=== PATIENT | female | born 1955 | race Caucasian/White ===

== ENCOUNTER → 2017-01-17 | Outpatient (CLI) | payer BC ==
--- NOTE | 2017-01-17 14:38 | RESP ---
DATE OF SERVICE: 01/17/2017 ATTENDING PHYSICIAN: Dr. Nayan Andrade. The patient's FVC was 3.7 which is 121% of predicted, FEV1 2.8 which is 118% of predicted. FEV1/FVC ratio was normal. No bronchodilators were given. Lung volume showed a total lung capacity of 169% of predicted, residual volume 264% of predicted. Diffusion capacity 122% of predicted. IMPRESSION: 1. No significant obstructive airway disease. 2. No bronchodilators given. 3. Lung volumes consistent with hyperinflation. 4. Increased diffusion capacity. ADÁN BADILLO MD DR: SAEED/hollie JOB#: [id number] / [id number] NAYAN Chaparro MD
== END | disposition home or self-care (01) ==
LOC: PF 11:51
PROVIDERS: ATTEND Internal Medicine Pulmonary Disease
DX: R06.02 Shortness of breath (principal)
CPT/HCPCS: 94010; 94729

== ENCOUNTER → 2017-01-18 | Outpatient (CLI) | payer BC ==
--- NOTE | 2017-01-18 11:36 | KCIC ---
Chest, two views Indication: Chronic cough. Time of exam 11:11 a.m. Comparison is made with prior chest from 03/16/2005. The heart size is normal. The lungs are clear. The pulmonary vascularity is normal. No infiltrate, effusion or pneumothorax is seen. There are postop changes to the lower cervical spine. Impression: No acute cardiopulmonary process is detected. Electronically signed by: Dayton Collado MD (January 18, 2017 11:35:16)
== END | disposition home or self-care (01) ==
LOC: KCIC 10:55
PROVIDERS: ATTEND Internal Medicine Pulmonary Disease
DX: R05 Cough (principal)
CPT/HCPCS: 71020

== ENCOUNTER → 2017-02-14 | Outpatient (CLI) | payer BC ==
--- NOTE | 2017-02-14 09:42 | KCIC ---
EXAM: Upper gastrointestinal series exam. HISTORY: Chronic cough. TECHNIQUE: A brusher hand image of the abdomen was obtained. Fluoroscopic imaging was then performed in multiple positions and obliquities during the oral administration of barium contrast. Effervescent crystals were administered for dedicated air contrast views. The total fluoroscopy time was 53 seconds. 11 fluoroscopic images were obtained. COMPARISON: None. FINDINGS: The brusher hand image of the abdomen demonstrates gas and stool within the colon. There is no bowel obstruction. There are surgical clips within the left upper quadrant. There are cholecystectomy clips. The fluoroscopic images demonstrate normal swallowing function. There is no aspiration or penetration. There is cervical spinal fusion instrumentation. The esophagus is normal in caliber. There is no delay in transit of contrast down the esophagus into the stomach. There are esophageal tertiary contractions throughout the exam. No intrinsic esophageal mucosal lesion is seen. There are findings consistent with fundoplication surgery. There is significant gastroesophageal reflux to the proximal esophagus with recumbent positioning. No gastric mucosal lesion is seen. There is normal emptying of contrast into the small bowel. IMPRESSION: 1. Significant gastroesophageal reflux to the proximal esophagus with recumbent positioning. 2. Findings consistent with fundoplication surgery. 3. Esophageal tertiary contractions throughout the exam. No intrinsic esophageal mucosal lesion is seen. Electronically signed by: Abeba Dick MD (02/14/2017 9:39 AM)
== END | disposition home or self-care (01) ==
LOC: KCIC 07:50
PROVIDERS: ATTEND Surgery
DX: K21.9 Gastro-esophageal reflux disease without esophagitis (principal); K44.9 Diaphragmatic hernia without obstruction or gangrene; R05 Cough
CPT/HCPCS: 74241

== ENCOUNTER → 2018-04-21 | Outpatient (CLI) | payer BC, MEDICARE ==
[~2018-04-21] MED LIST: ATOR20TA58 PO; COLE625T12 PO; MIRA50TA PO; TRAZ150T49 PO
--- NOTE | 2018-04-22 10:11 | KCIC ---
Bilateral digital screening mammograms with 3-D tomosynthesis: Reason for examination: Routine screening. Comparison is made to previous studies dated 11/29/2015 and 06/16/2014 Bilateral mammograms in CC and oblique projections were obtained with 2-D imaging and 3-D tomosynthesis imaging on a Siemens Inspiration unit and reviewed on the workstation. Interpretation was made with the benefit of CAD. The skin and nipples show no abnormalities. No abnormal axillary lymph nodes are seen. The breast parenchyma shows scattered fatty and fibroglandular density. (Breast density: Category B.) There are no dominant masses, suspicious calcifications or architectural distortion. Impression: No evidence of malignancy. Recommend routine screening. BI-RAD Category 1: Negative. "Our facility is accredited by the [employer] Mammography Program." This patient's information has been entered into a reminder system for the patient to be notified with the results of her examination and a target date for the next mammogram. Electronically signed by: Kita Romero MD (04/22/2018 10:07 AM) [id number]
== END | disposition home or self-care (01) ==
LOC: KCIC MAMMO 16:54
PROVIDERS: ATTEND Nurse Practitioner Gerontology
DX: Z12.31 Encounter for screening mammogram for malignant neoplasm of breast (principal); K21.9 Gastro-esophageal reflux disease without esophagitis
CPT/HCPCS: 77063; 77067

== ENCOUNTER → 2018-04-24 | Outpatient (CLI) | payer BC, MEDICARE ==
[~2018-04-24] MED LIST changes: +GADOBUTROL 10 MMOL/10 ML VIAL IV ONE
--- NOTE | 2018-04-24 16:22 | KCIC ---
EXAMINATION: Magnetic resonance imaging (MRI) of the brain and brainstem without and with contrast 04/24/2018 3:30 PM HISTORY: Short-term memory loss for 2 years. TECHNIQUE: Multiplanar multi-weighted MRI of the brain and brainstem was performed without and with intravenous contrast using the general brain protocol. Contrast information: 8 mL Gadolinium based contrast COMPARISON: None available. FINDINGS: The scalp and calvarium are normal. The superior sagittal sinus demonstrates normal venous flow. The corpus callosum is normal in shape and signal intensity. The posterior fossa is unremarkable. The pituitary and sella are normal. The brainstem and craniocervical junction are unremarkable. Few scattered foci of T2/FLAIR signal hyperintensity in the periventricular and subcortical white matter are within the range of age-related degenerative changes. Diffusion weighted images reveal no hyperintensities to suggest acute cerebral infarction. The susceptibility weighted sequences reveal no evidence of acute or chronic hemorrhage. The ventricles are normal in size and position without evidence of hydrocephalus. There are no areas of abnormal contrast enhancement. There is a small left frontal developmental venous anomaly with superficial cortical drainage. The paranasal sinuses are normal. The visualized portions of the mastoids are unremarkable. The orbits appear normal. Normal flow voids are demonstrated in the carotid arteries and basilar artery. IMPRESSION: 1. No evidence for acute or subacute ischemia. 2. There are no lacunar infarcts or microhemorrhages. 3. There is a small left frontal developmental venous anomaly. Electronically signed by: Deanne Yin MD (04/24/2018 4:17 PM) [id number]
== END | disposition home or self-care (01) ==
LOC: KCIC MRI 15:21
PROVIDERS: ATTEND Nurse Practitioner Gerontology
DX: G93.89 Other specified disorders of brain (principal); K21.9 Gastro-esophageal reflux disease without esophagitis
CPT/HCPCS: 70553; A9585

== ENCOUNTER → 2019-11-03 | Outpatient (CLI) | payer BC, MEDICARE ==
[~2019-11-03] MED LIST changes: -GADOBUTROL 10 MMOL/10 ML VIAL IV ONE
--- NOTE | 2019-11-04 12:32 | KCIC ---
Examination: SHOULDER 2+V RIGHT History: Chronic pain Comparison/Correlation: None Findings: Acromioclavicular and glenohumeral relationships are unremarkable. No fracture or bone destruction. Soft tissues are unremarkable. Right lung field is clear. Impression: No suspicious process. Electronically signed by: Steve Reyes MD (11/04/2019 12:29 PM) [id number]
== END | disposition home or self-care (01) ==
LOC: KCIC 15:21
PROVIDERS: ATTEND Nurse Practitioner Family
DX: M25.511 Pain in right shoulder (principal); G89.29 Other chronic pain
CPT/HCPCS: 73030

== ENCOUNTER → 2019-11-03 | Outpatient (CLI) | payer BC, MEDICARE ==
--- NOTE | 2019-11-03 17:57 | KCIC ---
MR of the right shoulder HISTORY: Chronic right shoulder pain. TECHNIQUE: Routine multiplanar sequences are obtained. FINDINGS: Moderate motion degradation despite repeating scans. The acromioclavicular joint is intact. Rotator cuff tendinosis. Partial-thickness articular side tearing of the anterior supraspinatus tendon, without full-thickness rupture or retraction. Partial subscapularis tendon tear. No significant subdeltoid bursal effusion. No significant glenohumeral joint effusion. There may be mild glenohumeral joint DJD. Mild signal within the posterosuperior labrum, compatible with degeneration or degenerative tear although this may be exaggerated by the motion degradation. The biceps tendon appears grossly intact. No acute fracture. No aggressive bone destruction. IMPRESSION: 1. Partial rotator cuff tearing, particularly at the supraspinatus tendon and subscapularis tendon. 2. Posterosuperior labral degeneration or degenerative tearing. Electronically signed by: Lee Douglas MD (11/03/2019 5:54 PM) [id number]
--- NOTE | 2019-11-03 17:57 | KCIC ---
MR of the left shoulder HISTORY: Left shoulder pain. Prior rotator cuff repair 5 years ago. Area at the superior shoulder, possible cyst or calcium deposits. Technique: Routine multiplanar sequences are obtained. FINDINGS: Acromioclavicular joint is mildly degenerative. No evidence of supraspinatus or infraspinatus tendon tear. Signal within the supraspinatus tendon footprint attachment compatible with tendinosis. Mild linear fluid signal within the subscapularis tendon compatible with some minimal delamination but no substantial rupture. No significant subdeltoid bursal effusion. There is an anchor screw at the humeral head, compatible with prior rotator cuff repair. No significant subdeltoid bursal effusion. No significant glenohumeral joint effusion. No advanced DJD. No evidence of labral tear or detachment. No para labral cyst. Biceps tendon appears intact. No acute fracture. No aggressive bone destruction. No evidence of a cystic lesion or other signal abnormality within the superior shoulder soft tissues. IMPRESSION: 1. Mild rotator cuff tendinosis. Thin linear longitudinal signal defect within the subscapularis tendon, compatible with some minimal delamination. No substantial rotator cuff tear is seen however. 2. No significant abnormality is seen in the superior shoulder soft tissues. Palpable finding may be due to mild hypertrophic AC joint disease. If this remains of concern or increases, could consider targeted ultrasound of the area. Electronically signed by: Lee Douglas MD (11/03/2019 5:54 PM) [id number]
== END | disposition home or self-care (01) ==
LOC: KCIC MRI 15:13
PROVIDERS: ATTEND Nurse Practitioner Family
DX: M75.82 Other shoulder lesions, left shoulder (principal); M75.101 Unspecified rotator cuff tear or rupture of right shoulder, not specified as traumatic
CPT/HCPCS: 73221